=== PATIENT | male | born 1990 | race Caucasian/White ===

== ENCOUNTER 2018-12-19 05:59 | Emergency (ER) | payer SELFPAY ==
[~2018-12-19] VITALS: Ht 167.6 cm; Wt 72.7 kg
[2018-12-19 06:10] VITALS: Ht 167.6 cm; Wt 72.7 kg
[2018-12-19] MEDS ORDERED: OMEPRAZOLE20 M1 (06:11)
[2018-12-19] MEDS ORDERED: ALBUTEROL SULF8.5 GM (06:12)
[2018-12-19] MEDS ORDERED: XANAX0.5 MG (06:12)
[2018-12-19 06:40] LABS: UDS - AMPHET POSITIVE QUAL (NEGATIVE); UDS - BARB NEGATIVE QUAL (NEGATIVE); UDS - BENZO NEGATIVE QUAL (NEGATIVE); UDS - COCAINE NEGATIVE QUAL (NEGATIVE); UDS - OPIATE NEGATIVE QUAL (NEGATIVE); UDS - PCP NEGATIVE QUAL (NEGATIVE); UDS - THC NEGATIVE QUAL (NEGATIVE)
[2018-12-19 06:55] LABS: BASOPHILS 0.4 % (0-2); EOSINOPHILS 0.6 % (0-7); HEMATOCRIT 44.9 % (42.0-54.0); HEMOGLOBIN 15.5 g/dL (13.5-17.5); IMMATURE GRANULOCYTES 0.2 % (0-5); MCH 29.7 pg (26.0-34.0); MCHC 34.5 g/dL (31.0-37.0); MEAN PLATELET VOLUME 10.3 fL (7.4-10.4); MONOCYTES 6.2 % (2-11); NEUTROPHILS 51.6 % (40-80); PLATELET COUNT 277 10x3/uL (130-400); RBC 5.22 10x6/uL (4.20-6.10); WBC 12.2 10x3/uL (4.8-10.8)
[2018-12-19 07:11] LABS: ALBUMIN 4.3 g/dL (3.4-5.0); ALKALINE PHOSPHATASE 88 U/L (46-116); ALT (SGPT) 40 U/L (10-68); BILIRUBIN - TOTAL 0.43 mg/dL (0.2-1.3); CALC OSMOLALITY 277 mosm/kg (275-300); CALCIUM 9.6 mg/dL (8.5-10.1); CARBON DIOXIDE 26.4 mmol/L (21.0-32.0); CHLORIDE - SERUM 103 mmol/L (98-107); CREATININE - SERUM 0.9 mg/dL (0.6-1.3); GLUCOSE 108 mg/dL (74-106); PROTEIN - SERUM 7.6 g/dL (6.4-8.2); SODIUM 139 mmol/L (136-145); UREA NITROGEN 11 mg/dL (7-18); eGFR NON AFRICAN AMERICAN > 90 mL/min (90-120)
[2018-12-19 07:20] LABS: AMYLASE - SERUM 55 U/L (25-115); CKMB 1.1 U/L (0.0-3.6); CREATINE KINASE 174 UL (21-232); LIPASE 176 U/L (73-393)
[2018-12-19 07:25] LABS: APPEARANCE CLEAR (CLEAR); BILIRUBIN NEGATIVE (NEGATIVE); COLOR STRAW (YELLOW); GLUCOSE NEGATIVE (NEGATIVE); KETONE NEGATIVE (NEGATIVE); NITRITE NEGATIVE (NEGATIVE); PROTEIN NEGATIVE (NEGATIVE); SPECIFIC GRAVITY 1.005 (1.005-1.020); UROBILINOGEN NORMAL (NORMAL)
[2018-12-19 07:32] LABS: TROPONIN-I < 0.017 ng/mL (0.000-0.060)
[2018-12-19 08:21] VITALS: BP 147/99
== END 2018-12-19 08:12 | disposition home or self-care (01) ==
LOC: D.ER 05:59
PROVIDERS: Family Medicine
DX: R07.9 Chest pain, unspecified (principal); F15.10 Other stimulant abuse, uncomplicated; R10.13 Epigastric pain

== ENCOUNTER 2018-12-19 10:58 | Emergency (ER) | payer SELFPAY ==
[~2018-12-19] VITALS: Ht 167.6 cm; Wt 72.7 kg
[~2018-12-19 10:58] MED LIST: ALBUTEROL SULF8.5 GM; OMEPRAZOLE20 M1; XANAX0.5 MG
[2018-12-19 11:04] VITALS: Ht 167.6 cm; Wt 72.7 kg
[2018-12-19 14:10] VITALS: BP 90/60
== END 2018-12-19 14:10 | disposition home or self-care (01) ==
LOC: D.ER 10:58
DX: K42.9 Umbilical hernia without obstruction or gangrene (principal); R14.2 Eructation

== ENCOUNTER 2018-12-26 04:33 | Emergency (ER) | payer SELFPAY ==
[~2018-12-26] VITALS: Ht 167.6 cm; Wt 72.6 kg
[2018-12-26 04:38] VITALS: Ht 167.6 cm; Wt 72.6 kg
[2018-12-26] MEDS ORDERED: CARAFATE1 G PO (04:40)
[2018-12-26 06:57] VITALS: BP 122/71
== END 2018-12-26 06:58 | disposition home or self-care (01) ==
LOC: D.ER 04:33
DX: R10.84 Generalized abdominal pain (principal)

== ENCOUNTER 2019-01-02 03:00 | Emergency (ER) | payer SELFPAY ==
[~2019-01-02] VITALS: Ht 167.6 cm; Wt 71.8 kg
[~2019-01-02 03:00] MED LIST changes: +CARAFATE1 G PO
[2019-01-02 03:06] VITALS: Ht 167.6 cm; Wt 71.8 kg
[2019-01-02 05:00] VITALS: BP 128/88
== END 2019-01-02 05:00 | disposition home or self-care (01) ==
LOC: D.ER 03:00
DX: F15.10 Other stimulant abuse, uncomplicated (principal); F41.0 Panic disorder [episodic paroxysmal anxiety]; R51 Headache; R10.9 Unspecified abdominal pain

== ENCOUNTER 2019-01-29 10:47 | Emergency (ER) | payer SELFPAY ==
[~2019-01-29] VITALS: Ht 167.6 cm; Wt 71.5 kg
[2019-01-29 10:51] VITALS: Ht 167.6 cm; Wt 71.5 kg
[2019-01-29] MEDS ORDERED: VISTARIL25 MG PO (12:58)
[2019-01-29] MEDS ORDERED: MIRALAX17 GM PO (12:58)
[2019-01-29 13:20] VITALS: BP 118/60
== END 2019-01-29 13:35 | disposition home or self-care (01) ==
LOC: D.ER 10:47
DX: F41.9 Anxiety disorder, unspecified (principal); K59.00 Constipation, unspecified

== ENCOUNTER 2019-02-05 22:39 | Emergency (ER) | payer SELFPAY ==
[~2019-02-05] VITALS: Ht 167.6 cm; Wt 49.9 kg
[~2019-02-05 22:39] MED LIST changes: +MIRALAX17 GM PO; +VISTARIL25 MG PO
[2019-02-05 22:55] VITALS: Ht 167.6 cm; Wt 49.9 kg
[2019-02-06 00:49] LABS: BASOPHILS 0.2 % (0-2); EOSINOPHILS 0.5 % (0-7); HEMATOCRIT 42.7 % (42.0-54.0); HEMOGLOBIN 14.7 g/dL (13.5-17.5); IMMATURE GRANULOCYTES 0.1 % (0-5); LYMPHOCYTES 23.8 % (15-50); MCH 29.3 pg (26.0-34.0); MCHC 34.4 g/dL (31.0-37.0); MCV 85.2 fL (80.0-100.0); MEAN PLATELET VOLUME 10.3 fL (7.4-10.4); MONOCYTES 4.7 % (2-11); NEUTROPHILS 70.7 % (40-80); PLATELET COUNT 269 10x3/uL (130-400); RBC 5.01 10x6/uL (4.20-6.10); RDW 13.1 % (11.5-14.5); WBC 8.7 10x3/uL (4.8-10.8)
[2019-02-06 00:50] LABS: APPEARANCE CLEAR (CLEAR); BILIRUBIN NEGATIVE (NEGATIVE); COLOR COLORLESS (YELLOW); GLUCOSE NEGATIVE (NEGATIVE); KETONE NEGATIVE (NEGATIVE); NITRITE NEGATIVE (NEGATIVE); PROTEIN NEGATIVE (NEGATIVE); SPECIFIC GRAVITY 1.005 (1.005-1.020); UROBILINOGEN NORMAL (NORMAL)
[2019-02-06 01:05] LABS: UDS - AMPHET POSITIVE QUAL (NEGATIVE); UDS - BARB NEGATIVE QUAL (NEGATIVE); UDS - BENZO NEGATIVE QUAL (NEGATIVE); UDS - COCAINE NEGATIVE QUAL (NEGATIVE); UDS - OPIATE NEGATIVE QUAL (NEGATIVE); UDS - PCP NEGATIVE QUAL (NEGATIVE); UDS - THC NEGATIVE QUAL (NEGATIVE)
[2019-02-06 01:56] LABS: ALBUMIN 4.5 g/dL (3.4-5.0); ALKALINE PHOSPHATASE 109 U/L (46-116); ALT (SGPT) 34 U/L (10-68); BILIRUBIN - TOTAL 0.34 mg/dL (0.2-1.3); CALC OSMOLALITY 279 mosm/kg (275-300); CALCIUM 9.4 mg/dL (8.5-10.1); CARBON DIOXIDE 25.7 mmol/L (21.0-32.0); CHLORIDE - SERUM 102 mmol/L (98-107); CREATININE - SERUM 0.9 mg/dL (0.6-1.3); GLUCOSE 90 mg/dL (74-106); POTASSIUM - SERUM 3.3 mmol/L (3.5-5.1); PROTEIN - SERUM 8.2 g/dL (6.4-8.2); SODIUM 141 mmol/L (136-145); UREA NITROGEN 11 mg/dL (7-18); eGFR NON AFRICAN AMERICAN > 90 mL/min (90-120)
[2019-02-06 02:07] LABS: AMYLASE - SERUM 49 U/L (25-115); CKMB 0.9 U/L (0.0-3.6); CREATINE KINASE 172 UL (21-232); LIPASE 168 U/L (73-393); MAGNESIUM - SERUM 2.2 mg/dL (1.8-2.4); TROPONIN-I < 0.017 ng/mL (0.000-0.060)
[2019-02-06] MEDS ORDERED: PROTONIX40 MG PO (02:39)
[2019-02-06 03:04] VITALS: BP 131/84
== END 2019-02-06 03:04 | disposition home or self-care (01) ==
LOC: D.ER 22:39
PROVIDERS: Family Medicine
DX: F19.10 Other psychoactive substance abuse, uncomplicated (principal); K29.70 Gastritis, unspecified, without bleeding

== ENCOUNTER 2019-02-26 01:09 | Emergency (ER) | payer SELFPAY ==
[~2019-02-26] VITALS: Ht 167.6 cm; Wt 69.9 kg
[~2019-02-26 01:09] MED LIST changes: +PROTONIX40 MG PO
[2019-02-26 01:12] VITALS: Ht 167.6 cm; Wt 69.9 kg
[2019-02-26 01:58] LABS: BASOPHILS 0.3 % (0-2); EOSINOPHILS 0.2 % (0-7); HEMATOCRIT 44.1 % (42.0-54.0); HEMOGLOBIN 15.5 g/dL (13.5-17.5); IMMATURE GRANULOCYTES 0.2 % (0-5); LYMPHOCYTES 21.2 % (15-50); MCH 29.9 pg (26.0-34.0); MCHC 35.1 g/dL (31.0-37.0); MCV 85.1 fL (80.0-100.0); MEAN PLATELET VOLUME 11.1 fL (7.4-10.4); MONOCYTES 4.1 % (2-11); PLATELET COUNT 229 10x3/uL (130-400); RBC 5.18 10x6/uL (4.20-6.10); RDW 13.3 % (11.5-14.5); WBC 11.6 10x3/uL (4.8-10.8)
[2019-02-26 02:13] LABS: ALBUMIN 4.7 g/dL (3.4-5.0); ALKALINE PHOSPHATASE 96 U/L (46-116); ALT (SGPT) 32 U/L (10-68); BILIRUBIN - TOTAL 0.63 mg/dL (0.2-1.3); CALC OSMOLALITY 279 mosm/kg (275-300); CALCIUM 9.7 mg/dL (8.5-10.1); CARBON DIOXIDE 25.7 mmol/L (21.0-32.0); CHLORIDE - SERUM 102 mmol/L (98-107); CREATININE - SERUM 0.9 mg/dL (0.6-1.3); GLUCOSE 133 mg/dL (74-106); LIPASE 167 U/L (73-393); PROTEIN - SERUM 8.4 g/dL (6.4-8.2); SODIUM 140 mmol/L (136-145); UREA NITROGEN 11 mg/dL (7-18); eGFR NON AFRICAN AMERICAN > 90 mL/min (90-120)
[2019-02-26 02:21] LABS: POTASSIUM - SERUM 3.1 mmol/L (3.5-5.1)
[2019-02-26 03:38] VITALS: BP 132/87
== END 2019-02-26 03:37 | disposition home or self-care (01) ==
LOC: D.ER 01:09
PROVIDERS: Family Medicine
DX: K21.9 Gastro-esophageal reflux disease without esophagitis (principal)